=== PATIENT | female | born 1970 | race African-American/Black ===

== ENCOUNTER 2017-11-27 06:13 | Day surgery (SDC) | payer OTHER ==
[~2017-11-27] VITALS: Ht 167.6 cm; Wt 117.9 kg
[2017-11-27 06:28] VITALS: BP 128/89
[2017-11-27 09:10] VITALS: BP 127/63
== END 2017-11-27 09:40 | disposition home or self-care (01) ==
LOC: GI 06:13 → OR 07:30 → GI 09:40
PROVIDERS: Internal Medicine Gastroenterology
PROC: 0DJD8ZZ Inspection of Lower Intestinal Tract, Via Natural or Artificial Opening Endoscopic (ICD-10-PCS; principal; 2017-11-27 07:30)
DX: Z12.11 Encounter for screening for malignant neoplasm of colon (principal); Z80.0 Family history of malignant neoplasm of digestive organs; K64.8 Other hemorrhoids
CPT/HCPCS: 45378; J1200; J1610; J2250; J2310; J3010; J3490

== ENCOUNTER 2018-06-09 16:30 | Emergency (ER) | payer OTHER ==
[~2018-06-09] VITALS: Ht 165.1 cm; Wt 124.7 kg
[2018-06-09 16:47] VITALS: BP 120/82; Ht 165.1 cm; Wt 124.7 kg
== END 2018-06-09 19:20 | disposition left against medical advice (07) ==
LOC: ED 16:30
DX: Z53.21 Procedure and treatment not carried out due to patient leaving prior to being seen by health care provider (principal)